=== PATIENT | male | born 1950 | race Caucasian/White ===

== ENCOUNTER 2017-02-14 20:20 | Emergency (ER) | payer MEDICARE ==
--- NOTE | 2017-02-16 13:24 | ER ---
ADMIT: 02/14/2017 RM/LOC: ER [facility] MR#: [id number] [facility] [address] [place], [place] [id number] [place] [address] [place] [address] Emergency Room Report SEX: M AGE: 66 : 1950 DATE: 02/14/2017 TIME: 2019 Please refer to my T-sheet for complete H and P. HISTORY OF PRESENT ILLNESS: Briefly, the patient is 66-year-old who comes in with 12 hours of abdominal pain, very mild, this is 2/10, but he noticed blood in his stool, maybe a little bit of diarrhea, but not major. He has not been on an antibiotic, has not traveled out of the country. No significant pain, he said though. PHYSICAL EXAMINATION: VITAL SIGNS: Blood pressure 153/84, pulse 80, respirations 20, temp 98.7, saturating 98%. GENERAL: He is in no acute distress. HEENT: Grossly normal. ABDOMEN: Mildly tender in the left lower quadrant and suprapubic. No rebound or guarding. SKIN: No rash. EMERGENCY DEPARTMENT COURSE: CBC was normal except white count 13.3. Chemistries normal except potassium 5.3, which is hemolyzed. Glucose 156, creatinine was 1.5 [address] AST was 58[address] CT abdomen and pelvis revealed diverticulitis low grade. I gave the patient Flagyl 500 p.o., Bactrim DS one p.o. and he wanted to go home and try it as an outpatient. ASSESSMENT: Acute large bowel diverticulitis with bleeding. No perforation. No abscess by CT scan. PLAN: Fluids. Avoid seeds and popcorn. Return if worse. Flagyl 500 t.i.d. for 7 days. I told him to avoid alcohol. Bactrim DS b.i.d. x7 days. [facility]. Lei Watson MD/ charissa JOB #: [id number] CC: Lei Watson MD, Attending Physician [facility] Physician, Family Physician
== END 2017-02-14 22:30 | disposition home or self-care (01) ==
LOC: ER 20:20
DX: K57.33 Diverticulitis of large intestine without perforation or abscess with bleeding (principal); I10 Essential (primary) hypertension; E78.00 Pure hypercholesterolemia, unspecified; Z88.8 Allergy status to other drugs, medicaments and biological substances; Z79.899 Other long term (current) drug therapy